=== PATIENT | female | born 1960 | race Caucasian/White ===

== ENCOUNTER 2018-01-30 21:51 | Inpatient (IN) | payer OTHER ==
[~2018-01-30] VITALS: Ht 160 cm; Wt 113.4 kg
[~2018-01-30 21:51] MED LIST: ANTIVERT25 MG PO; CELEXA40 MG PO; ELAVIL10 MG PO; ERGOCALCIF50000 UNIT PO; FLEXERIL10 MG PO; LATUDA60 MG PO; LYRICA150 MG PO; MELATONIN10 M1 PO; MOTRIN600 MG PO; PRAVACHOL40 MG PO; TOPROL XL50 MG PO; VENTOLIN HFA IH; ZANTAC150 MG PO; [UNRECOGNIZED DRUG - OTHER]
[2018-01-31 13:01] VITALS: BP 135/88
[2018-01-31] MEDS ORDERED: TRAMADOL HCL300 MG PO (13:21)
[2018-01-31 20:23] VITALS: BP 166/82
[2018-01-31 21:10] LABS: HEMATOCRIT 36.9 % (36.0-46.0); HEMOGLOBIN 12.2 G/DL (11.9-15.5); MCH 29.9 PG (29.0-34.0); MCHC 33.1 G/DL (30.0-36.0); MCV 90.4 FL (83-99); PLATELET COUNT 164 K/uL (156-360); RBC DIS.WIDTH-CV 12.5 % (11.8-14.6); RED BLOOD COUNT 4.08 M/uL (3.80-5.20); WHITE BLOOD COUNT 10.3 K/uL (4.1-10.2)
[2018-01-31 21:34] LABS: CHLORIDE 106 MEQ/L (99-109); CREATININE 0.8 MG/DL (0.6-1.3); GFR ESTIMATE (CALCULATED) > 59 mL/min/; GLUCOSE 181 mg/dL (70-99); SODIUM 138 MEQ/L (136-147); UREA NITROGEN (BUN) 12 mg/dL (9-23)
[2018-01-31 23:55] VITALS: BP 105/59
[2018-02-01 03:49] VITALS: BP 126/71
[2018-02-01 06:33] LABS: HEMATOCRIT 36.6 % (36.0-46.0); MCH 29.8 PG (29.0-34.0); MCHC 32.8 G/DL (30.0-36.0); MCV 90.8 FL (83-99); PLATELET COUNT 183 K/uL (156-360); RBC DIS.WIDTH-CV 12.4 % (11.8-14.6); RBC DIS.WIDTH-SD 40.7 % (39-53); RED BLOOD COUNT 4.03 M/uL (3.80-5.20)
[2018-02-01 07:02] LABS: CHLORIDE 103 MEQ/L (99-109); CREATININE 0.7 MG/DL (0.6-1.3); GFR ESTIMATE (CALCULATED) > 59 mL/min/; SODIUM 138 MEQ/L (136-147); UREA NITROGEN (BUN) 9 mg/dL (9-23)
[2018-02-01 07:25] VITALS: BP 112/66
[2018-02-01 07:25] LABS: GLUCOSE 115 mg/dL (70-99)
[2018-02-01 11:35] VITALS: BP 103/54
[2018-02-01 17:22] VITALS: BP 147/65
[2018-02-01 19:52] VITALS: BP 143/66
[2018-02-02 00:08] VITALS: BP 102/56
[2018-02-02 04:42] VITALS: BP 110/64
[2018-02-02 07:29] LABS: HEMATOCRIT 33.5 % (36.0-46.0); HEMOGLOBIN 10.8 G/DL (11.9-15.5); MCH 29.6 PG (29.0-34.0); MCHC 32.2 G/DL (30.0-36.0); MCV 91.8 FL (83-99); PLATELET COUNT 148 K/uL (156-360); RBC DIS.WIDTH-CV 12.6 % (11.8-14.6); RBC DIS.WIDTH-SD 42.5 % (39-53); RED BLOOD COUNT 3.65 M/uL (3.80-5.20); WHITE BLOOD COUNT 7.8 K/uL (4.1-10.2)
[2018-02-02 07:33] VITALS: BP 92/50
[2018-02-02 07:53] LABS: CHLORIDE 107 MEQ/L (99-109); CREATININE 0.8 MG/DL (0.6-1.3); GFR ESTIMATE (CALCULATED) > 59 mL/min/; GLUCOSE 100 mg/dL (70-99); POTASSIUM 4.1 MEQ/L (3.7-5.4); SODIUM 142 MEQ/L (136-147); UREA NITROGEN (BUN) 9 mg/dL (9-23)
[2018-02-02] MEDS ORDERED: MOTRIN800 MG PO (09:29)
== END 2018-02-02 13:00 | disposition home or self-care (01) | DRG 740 ==
LOC: ENRESERV 21:51 → 2SOUTH 01-31 10:36 → 2EASTP 01-31 12:14 → 2SOUTH 01-31 12:14 → ENRESERV 01-31 18:35 → 2EASTP 01-31 19:55
PROVIDERS: Obstetrics & Gynecology Gynecologic Oncology
PROC: 0UT70ZZ Resection of Bilateral Fallopian Tubes, Open Approach (ICD-10-PCS; principal; 2018-01-31)
PROC: 0UT90ZZ Resection of Uterus, Open Approach (ICD-10-PCS; principal; 2018-01-31)
PROC: 07BC0ZX Excision of Pelvis Lymphatic, Open Approach, Diagnostic (ICD-10-PCS; principal; 2018-01-31)
PROC: 0UT20ZZ Resection of Bilateral Ovaries, Open Approach (ICD-10-PCS; principal; 2018-01-31)
DX: C54.1 Malignant neoplasm of endometrium (principal); E66.01 Morbid (severe) obesity due to excess calories; Z68.41 Body mass index [BMI] 40.0-44.9, adult
CPT/HCPCS: 36415; 80048; 85027; 86850; 86900; 86901; 86920; 88305; 88309; 94640; 94640 76; 94799; 99202; J0330; J0690; J1170; J1650; J1885; J2405; J2710; J2765; J3010; J7643